=== PATIENT | female | born 1990 | race Caucasian/White ===

== ENCOUNTER → 2016-09-03 | Outpatient (CLI) | payer OTHER ==
--- NOTE | 2016-09-03 08:56 | RAD ---
PROCEDURE MRI lumbar spine without contrast. HISTORY Low back pain with left leg radiculopathy for 1 week TECHNIQUE Sagittal and axial T1 and T2 and sagittal STIR images were acquired of the lumbar spine. Contrast: None COMPARISON None FINDINGS Lumbar vertebral body stature is maintained. There is negligible posterior subluxation of L5 relative to S1. Conus terminates normally T12. There is moderate degenerative disc disease L5-S1, endplate edema at this level. There is mild degenerative disc disease L4-5. There is posterior annular tear at L4-5. L3-4: Neural foramina and spinal canal are adequate L4-5: There is shallow posterior bulge. There is very mild narrowing of the far lateral recesses greater on the right. Neural foramina are adequate. L5-S1: There is disc osteophyte complex with a superimposed large protrusion/contained extrusion eccentric to the left lateral recess measuring approximately 13 millimeters transverse by 8 millimeters AP x 9 millimeters cc. There is severe left lateral recess stenosis with posterior displacement descending left S1 nerve root. Neural foramina are adequate. IMPRESSION 1. There is large protrusion/contained extrusion eccentric to left lateral recess at L5-S1 with posterior displacement of the descending left S1 nerve root, severe left lateral recess stenosis. 2. There is moderate degenerative disc disease at L5-S1, endplate edema at this level likely reactive/degenerative in etiology. There is mild degenerative disc disease L4-5. Electronically signed by: Kalia Gold MD (Sep 03, 2016 08:54:34)
== END | disposition home or self-care (01) ==
LOC: MRI 08:10
PROVIDERS: ATTEND Family Medicine
DX: M51.37 Other intervertebral disc degeneration, lumbosacral region (principal)
CPT/HCPCS: 72148

== ENCOUNTER → 2016-10-08 | Outpatient (CLI) | payer OTHER ==
[~2016-10-08] MED LIST: CYCL10TA2 PO; IBUP-1027 PO; IOHEXOL 180 MG/ML 10 ML VIAL. ONE; methylPREDNISolone ACETATE 40 MG/ML VIAL. ONE; methylPREDNISolone ACETATE 80 MG/ML VIAL. ONE
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
== END | disposition home or self-care (01) ==
LOC: PNCL 09:59
PROVIDERS: ATTEND Nurse Practitioner
DX: M51.16 Intervertebral disc disorders with radiculopathy, lumbar region (principal); Z72.89 Other problems related to lifestyle
CPT/HCPCS: 62323; J1030; J1040